=== PATIENT | female | born 1995 | race Caucasian/White ===

== ENCOUNTER 2017-03-30 16:36 | Inpatient (IN) | payer OTHER ==
[~2017-03-30] VITALS: Ht 165.1 cm; Wt 88.0 kg
--- NOTE | ~2017-03-30 | HP ---
Unit #: [id number] #: [id number] Patient: MAGNOLIA DICKSON [id number] [place] [address] [id number] I MR#: [id number] NAME: MAGNOLIA DICKSON ROOM: P203 Age: 22 Sex: F Admission Date: 03/30/2017 : 1995 Attending Physician: Raphael Eng M.D. Admitting Physician: Raphael Eng M.D. Primary Care Physician: Primary Care Physician No HISTORY AND PHYSICAL HISTORY OF PRESENT ILLNESS Magnolia is a 22 year old admitted to [address] [place] [address] with depression and self-harming behavior. PAST MEDICAL HISTORY History of self-harming. PAST SURGICAL HISTORY Nothing reported. ALLERGIES No known drug allergies. SOCIAL HISTORY Smokes one pack per day, denies alcohol and illicit drug use. FAMILY HISTORY Medically noncontributory. REVIEW OF SYSTEMS CONSTITUTIONAL: No fever or chills. HEENT: Denies any sore throat, ear pain or runny nose. CARDIOVASCULAR: Denies chest pain, irregular heart rhythm or palpitations. CHEST: Denies shortness of breath or cough. No hemoptysis. GASTROINTESTINAL: Denies nausea, vomiting, diarrhea or chronic constipation. ENDOCRINE: Denies history of increased thirst or urination. No recent significant weight loss or gain. GENITOURINARY: Denies dysuria, frequency, or hematuria. SKIN: Denies any rashes. HEMATOLOGIC: Denies history of increased bleeding or bruising. MUSCULOSKELETAL: Denies any hot, swollen joints. No generalized muscle pain. NEUROLOGIC: Denies problems with vision or speech. No frequent, severe headaches. No numbness, tingling or weakness in any extremities. Denies loss of bladder or bowel control. CURRENT MEDICATIONS 1. Vistaril p.r.n. 2. Zoloft 100 mg q day 3. Milk of Magnesia p.r.n. 4. Maalox p.r.n. 5. Tylenol p.r.n. Unit #: [id number] #: [id number] Patient: MAGNOLIA DICKSON PHYSICAL EXAMINATION GENERAL: Alert, well-nourished, in no apparent distress. VITAL SIGNS: Blood pressure 132/100, heart rate 80, respirations 16, temperature 98.6. WEIGHT: 194 pounds. HEIGHT: 5'5". SKIN: Warm and dry without rash. She has multiple superficial scratches along bilateral superior breasts. These areas have scabbed over. There is no increased redness, swelling, heat or pus noted. HEENT: Normocephalic. TMs not viewed. Oral and nasal passages clear. Conjunctivae clear. Pupils equal, round and reactive to light and accommodation. Extraocular movements intact. NECK: Supple without lymphadenopathy or thyromegaly. HEART: Regular rate and rhythm without murmur. LUNGS: Clear. ABDOMEN: Soft, nontender. : Not done. EXTREMITIES: No evidence of cyanosis, clubbing or edema. Moves all extremities without focal deficit. NEUROLOGICAL: Grossly within normal limits. Cranial Nerves: II: Visual gooden are intact. III, IV AND : Extraocular movements are intact. Pupils are equal, round and reactive to light. V: Facial sensation is grossly normal. VII: Facial movements and expression are normal. VIII: Auditory acuity grossly intact. IX, X: Uvula is midline. Phonation is normal. XI: Patient shrugs shoulders and turns head normally. XII: Tongue protrudes in the midline. Sensory and Motor Function: Sensory and motor sensation is grossly normal. Motor: moves all extremities well. Coordination: Gait is normal. Deep Tendon Reflexes: Intact. IMPRESSION Psychiatric admission RECOMMENDATIONS PSYCHIATRIC: Per psychiatrist. MEDICAL: I see no contraindications to participating in facility's activities. MEDICAL PROGNOSIS Good. MEDICAL CONDITION Stable. Dictated by... Jeniffer TangAJudah. for Hussein Santillan/amarilys TD: 03/31/2017 21:25 JOB #: [id number] Unit #: [id number] #: [id number] Patient: MAGNOLIA DICKSON HISTORY AND PHYSICAL Page 1 of 1 X Talia Galloway HISTORY AND PHYSICAL
--- NOTE | ~2017-03-30 | DS ---
Unit #: [id number] #: [id number] [facility] [id number] [facility] [address] [place] [address] [id number] I MR#: [id number] NAME: MAGNOLIA DICKSON ROOM: [facility][Note 3]3 Age: 22 Sex: F Admission Date: 03/30/2017 : 1995 Discharge Date: 04/03/2017 Attending Physician: Raphael Eng M.D. DISCHARGE SUMMARY IDENTIFYING DATA Ms. James is a 22-year-old single white female, who is a resident of [place], [place], and was self-referred to the hospital on a voluntary basis. DISCHARGE DIAGNOSES Psychiatric: Major depressive disorder, recurrent, moderate, without psychotic features; cannabis abuse, moderate; cocaine abuse, moderate. Medical: None. Stressors: Moderate psychosocial stressors. HISTORY OF PRESENT ILLNESS Please see initial psychiatric evaluation for details. PAST PSYCHIATRIC HISTORY Please see initial psychiatric evaluation for details. PAST MEDICAL HISTORY Please see initial psychiatric evaluation for details. HOSPITAL COURSE The patient was admitted to the adult psychiatric and chemical dependency unit at [facility] and was oriented to the hospital environment. Routine p.r.n. medications were initiated, and she was started back on her home medications and medications were adjusted and Zoloft was increased to 100 mg a day and was closely monitored. So she was taking the medications regularly and was tolerating them fairly well and was able to show a decent therapeutic response with improvement in depression and anxiety, and was denying any suicidal ideations, intent, or plan and as such, it was decided that she will be discharged home and will continue treatment on an outpatient basis. DISCHARGE MEDICATIONS Zoloft 100 mg a day for depression. DISCHARGE CONDITION Stable. PROGNOSIS Fair. Dictated by... Raphael Eng M.D. Unit #: [id number] #: [id number] Patient: MAGNOLIA DICKSON IAA/modl TD: 04/03/2017 12:13 JOB #: [id number] DISCHARGE SUMMARY Page 1 of 1 X Raphael Eng MD X DISCHARGE SUMMARY
--- NOTE | ~2017-03-30 | PN ---
Unit #: [id number] #: [id number] Patient: MAGNOLIA DICKSON [id number] [facility] [address] [place] [address] [id number] I MR#: [id number] NAME: MAGNOLIA DICKSON ROOM: P203 Age: 22 Sex: F Admission Date: 03/30/2017 : 1995 Attending Physician: Raphael Eng M.D. Admitting Physician: Raphael Eng M.D. Primary Care Physician: Primary Care Physician Angelia ALLRED NOTES DATE OF SERVICE 04/01/2017 DISCUSSION Ms. Dickson is a 22-year-old white female who was seen today. Chart was reviewed and case was discussed with the staff. She has been anxious, withdrawn, and rather seclusive to herself. Meanwhile, she has been cooperative with the treatment recommendations and has been taking the medications and tolerating them fairly well with no reported side effects. MENTAL STATUS EXAMINATION Young white female who is casually dressed with fair personal hygiene, appears to be in no acute distress or discomfort. She was awake and alert on interaction with intact orientation. Her mood is anxious with congruent affect. She denies any suicidal or homicidal ideations. Her insight and judgment remain slightly impaired. TREATMENT PLAN 1. We will continue her on her current medications and treatment protocol. We will monitor her response and make further adjustments as needed. 2. We will continue to follow up. Dictated by... Raphael Eng M.D. IAA/bzg TD: 04/01/2017 11:35 JOB #: [id number] [facility] PROGRESS NOTES Page 1 of 1 X Raphael Eng MD PROGRESS NOTE
--- NOTE | ~2017-03-30 | PN ---
Unit #: [id number] #: [id number] Patient: MAGNOLIA DICKSON [id number] [facility] [address] [place] [address] [id number] MR#: [id number] NAME: MAGNOLIA DICKSON ROOM: P203 Age: 22 Sex: F Admission Date: 03/30/2017 : 1995 Attending Physician: Raphael Eng M.D. Admitting Physician: Raphael Eng M.D. Primary Care Physician: Primary Care Physician Angelia ALLRED NOTES DATE OF SERVICE 04/02/2017 DISCUSSION Ms. Dickson is a 22-year-old white female with mood disorder who was seen today. Chart was reviewed and case was discussed with the staff. She has been doing fairly well and has been reporting improvement in her depressive symptoms thought she has been cooperative with the treatment recommendations and has been taking the medications and tolerating them fairly well. MENTAL STATUS EXAMINATION Young white female who is casually dressed with fair personal hygiene, appears to be in no acute distress or discomfort. She was awake and alert on interaction with intact orientation. Her mood is anxious with congruent affect. She denies any suicidal or homicidal ideations. Her insight and judgment remain slightly impaired. TREATMENT PLAN 1. We will continue her on her current treatment protocol. We will monitor her response to the medications and make further adjustments as needed. 2. We will continue to follow up. Dictated by... Raphael Eng M.D. IAA/bzg TD: 04/02/2017 10:50 JOB #: [id number] Unit #: [id number] #: [id number] Patient: MAGNOLIA DICKSON PROGRESS NOTES Page 1 of 1 X Raphael Eng MD PROGRESS NOTE
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
[2017-03-31 09:52] LABS: BASOPHIL# 0.1 X10e3 (0-0.3); BASOPHIL% 1.1 % (0-2.5); EOSINOPHIL# 2.4 X10e3 (0-0.7); EOSINOPHIL% 22.2 % (0.0-7.0); HEMATOCRIT 43.1 % (35.0-45.0); HEMOGLOBIN 14.1 gm/dL (12.0-16.0); LYMPHOCYTE# 3.1 X10e3 (1.0-3.5); LYMPHOCYTE% 29.2 % (17.0-45.0); MEAN CORPUSCULAR HEMOGLOBIN 28.2 PG (28-34); MEAN CORPUSCULAR HGB CONC 32.8 g/dL (30-36); MEAN PLATELET VOLUME 8.3 FL (6.5-11.5); MONOCYTE# 0.3 X10e3 (0-1.0); MONOCYTE% 3.1 % (3.0-12.0); NEUTROPHIL# 4.7 X10e3 (1.5-7.1); NEUTROPHIL% 44.4 % (40-75); PLATELET COUNT 313 X10e3 (140-420); RED CELL DISTRIBUTION WIDTH 13.2 % (11.0-15.5); WHITE BLOOD COUNT 10.7 X10e3 (4.0-10.5)
[2017-03-31 09:54] LABS: DIFF IND YES
[2017-03-31 09:56] LABS: URINE APPEARANCE TURBID; URINE BILIRUBIN NEG (NEG); URINE BLOOD NEG (NEG); URINE COLOR YELLOW; URINE GLUCOSE NEG (NEG); URINE KETONE NEG (NEG); URINE LEUKOCYTE ESTERASE NEG (NEG); URINE NITRATE NEG (NEG); URINE PH 5.5 (5-8); URINE PROTEIN NEG (NEG); URINE SPECIFIC GRAVITY 1.023 (1.003-1.035); URINE UROBILINOGEN 0.2 MG/DL (NEG)
[2017-03-31 10:14] LABS: PLATELET ESTIMATE NORMAL (NORMAL); RBC NORMAL YES
[2017-03-31 10:54] LABS: ALBUMIN SERUM 4.3 g/dL (3.5-5.0); BILIRUBIN,TOTAL 0.8 mg/dL (0.2-2.0); CALCIUM SERUM 9.7 mg/dL (8.4-10.2); GLOM FILT RATE Estimated 81.1 mL/min (>60); POTASSIUM 4.5 mmol/L (3.5-5.1); PROTEIN TOTAL SERUM 7.5 g/dL (6.0-8.3)
[2017-03-31 12:09] LABS: AMPHETAMINE NEG (NEG); BARBITURATES NEG (NEG); BENZODIAZEPINES NEG (NEG); COCAINE NEG (NEG); MARIJUANA POS (NEG); OPIATES NEG (NEG); TRICYCLIC ANTIDEPRESSANTS NEG (NEG); U METHADONE NEG (NEG)
== END 2017-04-03 11:55 | disposition home or self-care (01) | DRG 885 ==
LOC: P2S 18:55
PROVIDERS: Psychiatry & Neurology Psychiatry
DX: F33.1 Major depressive disorder, recurrent, moderate (principal); F14.10 Cocaine abuse, uncomplicated; F12.10 Cannabis abuse, uncomplicated; F17.210 Nicotine dependence, cigarettes, uncomplicated
CPT/HCPCS: 80053; 80307; 81003; 84703; 85025

== ENCOUNTER 2017-04-25 21:00 | Inpatient (IN) | payer OTHER ==
[~2017-04-25] VITALS: Ht 165.1 cm; Wt 88.0 kg
--- NOTE | ~2017-04-25 | DS ---
Unit #: [id number] #: [id number] [facility]: [facility]ICKSON [id number] [facility] [address] [place] [address] [id number] I MR#: [id number] NAME: MAGNOLIA DICKSON ROOM: P257 Age: 22 Sex: F Admission Date: 04/25/2017 : 1995 Discharge Date: 04/30/2017 Attending Physician: Raphael Eng M.D. Primary Care Physician: Primary Care Physician No DISCHARGE SUMMARY IDENTIFYING DATA Ms. Dickson is a 22-year-old single white female who is a resident of [place], [place] and was self-referred to the hospital on voluntary basis. HISTORY OF PRESENT ILLNESS Please see initial evaluation. PAST PSYCHIATRIC HISTORY Please see initial evaluation. PAST MEDICAL HISTORY Please see initial evaluation. HOSPITAL COURSE The patient was admitted to the adult psychiatric unit at [facility] and was oriented to the hospital environment. Routine p.r.n. medications were initiated and she was started back on her home medications and Zoloft was given to help her with depression. However, she was complaining of significant anxiety and initially Vistaril was given but she was making complaints that it has not been helping her and therefore Thorazine was given on p.r.n. basis and she was able to show a much better and therapeutic response and was reporting improvement in depression and anxiety and was willing to continue treatment on outpatient basis and as such it was decided that she will be discharged home. Will continue treatment on outpatient basis. DISCHARGE DIAGNOSES PSYCHIATRIC: 1. Major depressive disorder, recurrent, moderate, without psychotic features. 2. Generalized anxiety disorder. 3. Cannabis dependence, moderate. MEDICAL: None. STRESSORS: Mild psychosocial stressors. DISCHARGE MEDICATIONS 1. Zoloft 100 mg daily for depression. 2. Thorazine 50 mg p.r.n. q. 6 hours for anxiety. Unit #: [id number] #: [id number] Patient: MAGNOLIA DICKSON CONDITION AT DISCHARGE Stable. PROGNOSIS Fair. Dictated by... Raphael Eng M.D. IAA/asiya TD: 04/30/2017 20:30 JOB #: [id number] DISCHARGE SUMMARY Page 1 of 1 X Raphael Eng MD DISCHARGE SUMMARY
--- NOTE | ~2017-04-25 | CO ---
Unit #: [id number] #: [id number] Patient: MAGNOLIA DICKSON [id number] [place] [address] [id number] I MR#: [id number] NAME: MAGNOLIA DICKSON ROOM: P257 Age: 22 Sex: F Admission Date: 04/25/2017 : 1995 Attending Physician: Raphael Eng M.D. Primary Care Physician: Primary Care Physician No CONSULTATION REPORT SUBJECTIVE Magnolia is a 22-year-old who has complained of vaginal irritation and a foul smell. ASSESSMENT Bacterial vaginosis by history. PLAN Flagyl 500 mg one p.o. t.i.d. x7 days. Dictated by... Talia Galloway P.A.-C. for Hussein Santillan/too TD: 04/28/2017 20:41 JOB #: [id number] CONSULTATION REPORT Page 1 of 1 X Talia Galloway CONSULTATION REPORT
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
--- NOTE | ~2017-04-25 | HP ---
Unit #: [id number] #: [id number] Patient: MAGNOLIA DICKSON [id number] [place] [address] [id number] I MR#: [id number] NAME: MAGNOLIA DICKSON ROOM: P257 Age: 22 Sex: F Admission Date: 04/25/2017 : 1995 Attending Physician: Raphael Eng M.D. Admitting Physician: Raphael Eng M.D. Primary Care Physician: Primary Care Physician No HISTORY AND PHYSICAL HISTORY OF PRESENT ILLNESS Magnolia is a 22 year old admitted to [address] [place] [address] with depression. She was recently discharged from this facility after treatment for the same. The patient was seen and H & P dated 03/31/2017 was reviewed. This is currently. No changes. Please see H & P dated 03/31/2017. Dictated by... Talia Galloway P.A.-C. for Hussein Santillan/amarilys TD: 04/26/2017 22:52 JOB #: [id number] HISTORY AND PHYSICAL Page 1 of 1 X Talia Galloway HISTORY AND PHYSICAL
--- NOTE | ~2017-04-25 | PN ---
Unit #: [id number] #: [id number] Patient: MAGNOLIA DICKSON [id number] [facility] [address] [place] [address] [id number] MR#: [id number] NAME: MAGNOLIA DICKSON ROOM: P257 Age: 22 Sex: F Admission Date: 04/25/2017 : 1995 Attending Physician: Raphael Eng M.D. Admitting Physician: Raphael Eng M.D. Primary Care Physician: Primary Care Physician Angelia ALLRED NOTES DATE April 29, 2017 DISCUSSION Ms. Dickson is a 22-year-old white female, who was seen today and chart was reviewed and the case was discussed with the staff. She has been anxious and withdrawn, but reports that the anxiety is somewhat better and that the Thorazine has been helping her better than Vistaril. She has been cooperative with the treatment recommendations and she has been taking the medications and tolerating them fairly well with no reported side effects. MENTAL STATUS EXAMINATION Young white female, who was casually dressed with fair personal hygiene and appears to be in no acute distress or discomfort. The patient was awake and alert with intact orientation. Her mood was anxious with a congruent affect. The patient denies any suicidal or homicidal ideations. Her insight and judgment remain slightly impaired. TREATMENT PLAN 1. We will continue her on her current medications and treatment protocol, and will monitor her response to the medications, and make further adjustments as needed. 2. We will continue to followup. Dictated by... Hussein Vega/felice TD: 04/29/2017 13:07 JOB #: [id number] Unit #: [id number] #: [id number] Patient: MAGNOLIA DICKSON PROGRESS NOTES Page 1 of 1 X Raphael Eng MD PROGRESS NOTE
--- NOTE | ~2017-04-25 | PN ---
Unit #: [id number] #: [id number] Patient: MAGNOLIA DICKSON [id number] [facility] [address] [place] [address] [id number] MR#: [id number] NAME: MAGNOLIA DICKSON ROOM: P257 Age: 22 Sex: F Admission Date: 04/25/2017 : 1995 Attending Physician: Raphael Eng M.D. Admitting Physician: Raphael Eng M.D. Primary Care Physician: Primary Care Physician Angelia ALLRED NOTES DATE OF SERVICE 04/28/2017 DISCUSSION Ms. Dickson is a 22-year-old white female who was seen today. Chart was reviewed and case was discussed with the staff. She has been anxious, withdrawn, depressed, and rather seclusive to herself. Meanwhile, she has been cooperative with treatment recommendations and has been taking the medications and tolerating them fairly well with no reported side effects. MENTAL STATUS EXAMINATION Young white female who is casually dressed with fair personal hygiene, appears to be in no acute distress or discomfort. She was awake and alert on interaction with intact orientation. Her mood is anxious and depressed with congruent affect. Her speech is slow and goal-directed. She reports having suicidal ideations but denies any suicidal or homicidal ideations. Her insight and judgment remain slightly impaired. TREATMENT PLAN 1. We will continue her on her current medications and treatment protocol. We will monitor her response to the medications and make further adjustments as needed. 2. We will continue to follow up. Dictated by... Hussein Vega/dodie TD: 04/28/2017 12:41 JOB #: [id number] Unit #: [id number] #: [id number] Patient: MAGNOLIA DICKSON PROGRESS NOTES Page 1 of 1 X Raphael Eng MD PROGRESS NOTE
[2017-04-26 12:24] LABS: BASOPHIL# 0.1 X10e3 (0-0.3); EOSINOPHIL# 1.4 X10e3 (0-0.7); EOSINOPHIL% 18.2 % (0.0-7.0); HEMATOCRIT 40.9 % (35.0-45.0); HEMOGLOBIN 13.3 gm/dL (12.0-16.0); LYMPHOCYTE# 1.9 X10e3 (1.0-3.5); LYMPHOCYTE% 24.3 % (17.0-45.0); MEAN CELL VOLUME 85.5 FL (83-96); MEAN CORPUSCULAR HEMOGLOBIN 27.8 PG (28-34); MEAN CORPUSCULAR HGB CONC 32.6 g/dL (30-36); MEAN PLATELET VOLUME 7.9 FL (6.5-11.5); MONOCYTE# 0.5 X10e3 (0-1.0); MONOCYTE% 6.2 % (3.0-12.0); NEUTROPHIL# 3.9 X10e3 (1.5-7.1); NEUTROPHIL% 50.3 % (40-75); PLATELET COUNT 294 X10e3 (140-420); RED BLOOD COUNT 4.78 X10e (3.90-5.30); RED CELL DISTRIBUTION WIDTH 13.3 % (11.0-15.5); WHITE BLOOD COUNT 7.8 X10e3 (4.0-10.5)
[2017-04-26 12:26] LABS: DIFF IND NO
[2017-04-26 12:38] LABS: BILIRUBIN,TOTAL 1.1 mg/dL (0.2-2.0); BUN/CREATININE RATIO 14.28; CALCIUM SERUM 9.7 mg/dL (8.4-10.2); CREATININE SERUM 0.7 mg/dL (0.6-1.4); GLOM FILT RATE Estimated 124.7 mL/min (>60); POTASSIUM 4.2 mmol/L (3.5-5.1); PROTEIN TOTAL SERUM 6.7 g/dL (6.0-8.3)
[2017-04-29 09:47] LABS: URINE APPEARANCE CLEAR; URINE BILIRUBIN NEG (NEG); URINE BLOOD NEG (NEG); URINE COLOR YELLOW; URINE GLUCOSE NEG (NEG); URINE KETONE NEG (NEG); URINE LEUKOCYTE ESTERASE NEG (NEG); URINE NITRATE NEG (NEG); URINE PROTEIN NEG (NEG); URINE SPECIFIC GRAVITY 1.018 (1.003-1.035); URINE UROBILINOGEN 0.2 MG/DL (NEG)
[2017-04-29 11:01] LABS: AMPHETAMINE NEG (NEG); BARBITURATES NEG (NEG); BENZODIAZEPINES NEG (NEG); COCAINE NEG (NEG); MARIJUANA POS (NEG); OPIATES NEG (NEG); TRICYCLIC ANTIDEPRESSANTS NEG (NEG); U METHADONE NEG (NEG)
== END 2017-04-30 10:00 | disposition home or self-care (01) | DRG 885 ==
LOC: P2L 22:58
PROVIDERS: Psychiatry & Neurology Psychiatry
DX: F33.1 Major depressive disorder, recurrent, moderate (principal); R45.851 Suicidal ideations; F41.1 Generalized anxiety disorder; F12.20 Cannabis dependence, uncomplicated; N76.0 Acute vaginitis
CPT/HCPCS: 80053; 80307; 81003; 85025